=== PATIENT | female | born 1995 | race Two or more races ===

== ENCOUNTER 2019-08-04 13:56 | Emergency (ER) | payer OTHER ==
[~2019-08-04] VITALS: Ht 170.2 cm; Wt 127.0 kg
[~2019-08-04 13:56] MED LIST: PRILOSEC40 MG; REGLAN5 MG/5 ML
== END 2019-08-04 17:45 | disposition home or self-care (01) ==
LOC: EMR PED 13:56 → ER 13:56
DX: J45.998 Other asthma (principal)

== ENCOUNTER 2021-06-24 20:24 | Emergency (ER) | payer OTHER ==
[~2021-06-24] VITALS: Ht 170.2 cm; Wt 131.5 kg
[2021-06-24] MEDS ORDERED: VISTARIL25 MG PO (22:02)
== END 2021-06-24 22:47 ==
LOC: ER 20:24
DX: R00.2 Palpitations (principal); F41.8 Other specified anxiety disorders

== ENCOUNTER 2021-06-26 11:04 | Emergency (ER) | payer OTHER ==
[~2021-06-26] VITALS: Ht 170.2 cm; Wt 134.7 kg
[~2021-06-26 11:04] MED LIST changes: +VISTARIL25 MG PO
[2021-06-26] MEDS ORDERED: NABUMETONE750 MG PO (16:49)
[2021-06-26] MEDS ORDERED: BUTALBIT-ACETA1 EACH PO (16:49)
== END 2021-06-26 17:20 | disposition home or self-care (01) ==
LOC: ER 11:04
DX: R51.9 Headache, unspecified (principal); R07.89 Other chest pain; R42 Dizziness and giddiness; R55 Syncope and collapse; F41.8 Other specified anxiety disorders

== ENCOUNTER 2021-09-10 10:36 | Emergency (ER) | payer OTHER ==
[~2021-09-10] VITALS: Ht 170.2 cm; Wt 131.5 kg
[~2021-09-10 10:36] MED LIST changes: +BUTALBIT-ACETA1 EACH PO; +NABUMETONE750 MG PO
== END 2021-09-10 15:19 | disposition home or self-care (01) ==
LOC: ER 10:36
DX: K52.89 Other specified noninfective gastroenteritis and colitis (principal)

== ENCOUNTER 2022-12-04 00:21 | Emergency (ER) | payer OTHER ==
[~2022-12-04] VITALS: Ht 170.2 cm; Wt 108.9 kg
== END 2022-12-04 10:18 | disposition home or self-care (01) ==
LOC: ER 00:21
DX: K52.9 Noninfective gastroenteritis and colitis, unspecified (principal); E86.0 Dehydration

== ENCOUNTER 2025-06-25 22:43 | Emergency (ER) | payer OTHER ==
[~2025-06-25] VITALS: Ht 170.2 cm; Wt 110.2 kg
[~2025-06-25 22:43] MED LIST changes: +ONDANSETRON HCL4 MG PO; +PEPCID AC20 MG PO; +PRENA1 TRUE CO1 EACH PO
[2025-06-26] MEDS ORDERED: FAMOTIDINE/PF 20 MG/2 ML VIAL IV PUSH STA (00:14)
[2025-06-26] MEDS ORDERED: PROMETHAZINE HCL 50 MG/ML AMPUL IM STA (00:14)
[2025-06-26] MEDS ORDERED: 0.9 % SODIUM CHLORIDE 1,000 ML IV ONE (00:15)
[2025-06-26] MEDS ORDERED: FAMOTIDINE/PF 20 MG/2 ML VIAL ONE (00:43)
[2025-06-26] MEDS ORDERED: PROMETHAZINE HCL 50 MG/ML AMPUL IM ONE (00:43)
[2025-06-26 00:49] LABS: BASO % 0.2 % (0.1-1.2); EOS # 0.05 (0.04-0.54); EOS % 0.8 % (0.7-7.0); LYMPH # 1.02 (1.18-3.74); LYMPH % 15.5 % (19.3-53.1); MEAN PLATELET VOLUME 10.80 fl (9.4-12.4); MONO # 0.40 (0.24-0.82); MONO % 6.1 % (4.7-12.5); NEUT # 5.09 (1.56-6.13); NEUT % 77.1 % (34.0-71.1); RED CELL DISTRIBUTION WIDTH 15.5 % (11.6-14.4)
[2025-06-26 01:56] LABS: ALT/SGPT 15 U/L (12-78); AST/SGOT 11 U/L (15-37); BILIRUBIN TOTAL 0.37 mg/dL (0.3-1.2); BUN CREA RATIO 16 (7.0-25.0); CREATININE SERUM 0.49 mg/dL (0.55-1.02); GFR 151.49; GLOBULINA 3.5 G/DL (2.4-3.5); GLUCOSE FASTING 93 mg/dL (65-100); OSMOLALITY SERUM 281 MOSM/KG (275-295)
[2025-06-26 02:16] LABS: HCG QUANTITATIVE < 1 mUI/mL (1-3)
[2025-06-26 02:23] LABS: URINE APPEARANCE Clear; URINE BILIRRUBIN Negative (NEGATIVE); URINE BLOOD Small; URINE COLOR Yellow; URINE GLUCOSE Negative (NEGATIVE); URINE KETONE Trace (NEGATIVE); URINE LEUKOCYTE Negative; URINE NITRATE Negative; URINE PROTEIN Trace (NEGATIVE); URINE UROBILINOGEN 0.2 E.U./dl
[2025-06-26 02:27] LABS: URINE BACTERIA 753.6 uL (0.0-1933); URINE EPITHELIAL CELLS 27.6 uL (0.0-38.8); URINE RBC 21.7 uL (0.0-20.8); URINE WBC 15.6 uL (0.0-23.2)
[2025-06-26 03:00] LABS: URINE CAST 0.29 uL (0.0-1.40)
[2025-06-26] MEDS ORDERED: PEPCID40 MG PO (03:40)
[2025-06-26] MEDS ORDERED: ZOFRAN8 MG PO (03:40)
[2025-06-26] MEDS ORDERED: INTESTINEX680 M1 PO (03:40)
== END 2025-06-26 03:50 ==
LOC: ER 22:44
PROVIDERS: General Practice
DX: K52.89 Other specified noninfective gastroenteritis and colitis (principal); R11.10 Vomiting, unspecified; E86.0 Dehydration

== ENCOUNTER 2025-06-28 07:54 | Emergency (ER) | payer OTHER ==
[~2025-06-28] VITALS: Ht 170.2 cm; Wt 110.2 kg
[~2025-06-28 07:54] MED LIST changes: +INTESTINEX680 M1 PO; +PEPCID40 MG PO; +ZOFRAN8 MG PO
[2025-06-28 07:59] VITALS: BP 117/80; O2SAT 100
[2025-06-28] MEDS ORDERED: 0.9 % SODIUM CHLORIDE 1,000 ML IV ONE (08:15)
[2025-06-28] MEDS ORDERED: METOCLOPRAMIDE HCL 5 MG/ML VIAL IV ONE (08:15)
[2025-06-28] MEDS ORDERED: FAMOtidine 10 MG/ML (4ML VIAL) IV ONE (08:15)
[2025-06-28] MEDS ORDERED: METOCLOPRAMIDE HCL 5 MG/ML VIAL ONE (08:29)
[2025-06-28] MEDS ORDERED: FAMOTIDINE/PF 20 MG/2 ML VIAL ONE (08:30)
[2025-06-28 09:17] LABS: BASO % 0.3 % (0.1-1.2); EOS # 0.26 (0.04-0.54); EOS % 3.6 % (0.7-7.0); LYMPH # 1.77 (1.18-3.74); LYMPH % 24.5 % (19.3-53.1); MEAN PLATELET VOLUME 11.00 fl (9.4-12.4); MONO # 0.66 (0.24-0.82); MONO % 9.1 % (4.7-12.5); NEUT # 4.50 (1.56-6.13); NEUT % 62.2 % (34.0-71.1); RED CELL DISTRIBUTION WIDTH 15.3 % (11.6-14.4)
[2025-06-28 09:20] LABS: URINE APPEARANCE Clear; URINE BILIRRUBIN Negative (NEGATIVE); URINE BLOOD Negative; URINE COLOR Yellow; URINE GLUCOSE Negative (NEGATIVE); URINE KETONE Negative (NEGATIVE); URINE LEUKOCYTE Negative; URINE NITRATE Negative; URINE PROTEIN Trace (NEGATIVE); URINE UROBILINOGEN 1.0 E.U./dl
[2025-06-28 09:22] LABS: URINE BACTERIA 2091.4 uL (0.0-1933); URINE EPITHELIAL CELLS 21.9 uL (0.0-38.8); URINE RBC 20.2 uL (0.0-20.8); URINE WBC 24.1 uL (0.0-23.2)
[2025-06-28 09:26] LABS: URINE CAST 0.14 uL (0.0-1.40)
[2025-06-28 09:41] LABS: INR 1.03
[2025-06-28 09:48] LABS: ALT/SGPT 13 U/L (12-78); AST/SGOT 8 U/L (15-37); BILIRUBIN TOTAL 0.18 mg/dL (0.3-1.2); BUN CREA RATIO 14 (7.0-25.0); CREATININE SERUM 0.51 mg/dL (0.55-1.02); GFR 144.65; GLOBULINA 3.7 G/DL (2.4-3.5); GLUCOSE FASTING 84 mg/dL (65-100); OSMOLALITY SERUM 280 MOSM/KG (275-295)
[2025-06-28 09:49] LABS: HCG QUANTITATIVE < 1 mUI/mL (1-3)
[2025-06-28] MEDS ORDERED: PROBIOTIC1 EAC2 PO (11:28)
[2025-06-28] MEDS ORDERED: PEPCID AC20 MG PO (11:28)
[2025-06-28] MEDS ORDERED: METOCLOPRAMIDE10 MG PO (11:28)
[2025-06-28] MEDS ORDERED: LEVSIN/SL0.125 MG SL (11:28)
== END 2025-06-28 13:04 | disposition home or self-care (01) ==
LOC: ER 07:54
PROVIDERS: General Practice
DX: R19.7 Diarrhea, unspecified (principal); R10.12 Left upper quadrant pain; R11.2 Nausea with vomiting, unspecified; J45.909 Unspecified asthma, uncomplicated; Z98.84 Bariatric surgery status; I88.0 Nonspecific mesenteric lymphadenitis